=== PATIENT | male | born 1980 | race Caucasian/White ===

== ENCOUNTER 2020-12-23 11:43 | Emergency (ER) | payer OTHER ==
[~2020-12-23 11:43] MED LIST: KEFLEX500 MG PO
[2020-12-23 12:12] LABS: BASOPHIL 0.4 % (0-2); EOSINOPHIL 2.2 % (0-5); HCT 43.8 % (42.0-52.0); HGB 14.9 g/dl (13.2-18.0); LYMPHOCYTE 33.9 % (15-48); MCH 31.2 pg (25.0-31.0); MCV 91.8 fL (78.0-100.0); MONOCYTE 8.4 % (0-12); MPV 11.1 fL (6.0-9.5); NEUTROPHIL 54.9 % (41-80); NRBC 0; PLT 149 K/uL (150-400); RBC 4.77 M/uL (4.70-6.00); RDW 13.4 % (11.5-14.0); WBC 5.1 K/uL (4.0-10.5)
[2020-12-23 12:24] LABS: INR 0.97 (0.9-1.2); PROTHROMBIN TIME 12.2 SECONDS (11.4-13.6); PTT 25.1 SECONDS (22.2-34.7)
[2020-12-23 12:31] LABS: ALBUMIN 3.5 g/dL (3.4-5.0); BILIRUBIN - TOTAL 0.4 mg/dL (0.2-1.0); BUN/CREAT RATIO (CALC) 11.5 RATIO; CREATININE 1.22 mg/dL (0.67-1.17); GLOBULIN (CALCULATION) 3.4 g/dL; POTASSIUM 3.7 mmol/L (3.5-5.1); TOTAL PROTEIN 6.9 g/dL (6.4-8.2)
== END 2020-12-23 13:37 | disposition other institution (70) ==
LOC: FER 11:43
PROVIDERS: Emergency Medicine
DX: I63.9 Cerebral infarction, unspecified (principal); G81.91 Hemiplegia, unspecified affecting right dominant side; R20.2 Paresthesia of skin; R29.703 NIHSS score 3; J45.909 Unspecified asthma, uncomplicated; Z85.528 Personal history of other malignant neoplasm of kidney; Z20.822 Contact with and (suspected) exposure to COVID-19
CPT/HCPCS: 36415; 70450; 71045; 80053; 85025; 85610; 85730; 93005; J2997; U0002